=== PATIENT | male | born 1985 ===

== ENCOUNTER 2018-02-16 14:06 | Emergency (ER) | payer MEDICAID ==
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
[2018-02-16 15:05] LABS: BASO # 0.1 K/uL (0.0-0.2); BASO % 0.9 % (0.0-2.0); EOS # 0.5 K/uL (0.0-0.7); EOS % 6.4 % (0.0-4.0); HEMOGLOBIN 15.2 g/dL (12.0-18.0); LYMPH % 23.8 % (20.0-40.0); MEAN CELL VOLUME 97.9 fl (80.0-94.0); MEAN CORPUSCULAR HEMOGLOBIN 32.3 pg (27.0-31.0); MEAN PLATELET VOLUME 8.5 fl (7.2-11.7); MONO # 0.6 K/uL (0.0-0.8); MONO % 7.5 % (0.0-10.0); NEUT # 5.1 K/uL (1.8-7.0); NEUT % 61.4 % (50.0-75.0); RBC 4.71 Mil/uL (4.40-5.90); RED CELL DISTRIBUTION WIDTH 13.4 % (11.5-14.5); WHITE BLOOD COUNT 8.4 K/uL (4.8-10.8)
[2018-02-16 15:18] LABS: BLOOD UREA NITROGEN 7 mg/dl (9-20); CALCIUM 9.9 mg/dL (8.4-10.2); GFR NON-AFRICAN AMERICAN > 60
[2018-02-16 15:33] LABS: PROTHROMBIN TIME 10.8 Seconds (9.8-13.1)
[2018-02-16 15:35] LABS: PARTIAL THROMBOPLASTIN TIME 29.2 Seconds (25.6-37.1)
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
[2018-02-16 17:20] VITALS: RESP 18; TEMP 98.3
[2018-02-16 17:25] VITALS: O2SAT 99
[2018-02-16 18:24] VITALS: BP 126/86; PULSE 94
== END 2018-02-16 18:33 | disposition home or self-care (01) ==
LOC: H.ER 14:06
DX: S09.90XA Unspecified injury of head, initial encounter (principal); S09.92XA Unspecified injury of nose, initial encounter; S00.81XA Abrasion of other part of head, initial encounter; V43.62XA Car passenger injured in collision with other type car in traffic accident, initial encounter; Y92.410 Unspecified street and highway as the place of occurrence of the external cause; J32.2 Chronic ethmoidal sinusitis
CPT/HCPCS: 70450; 70486; 80048; 80320; 82948; 85025; 85610; 85730; 96372; 99285; J2060